=== PATIENT | male | born 1945 | race Two or more races ===

== ENCOUNTER 2019-01-29 17:04 | Emergency (ER) | payer MEDICARE ==
[~2019-01-29] VITALS: Ht 165.1 cm; Wt 76.0 kg
[~2019-01-29 17:04] MED LIST: ATOR10TA69 PO; METF-414 MT; MULT-9 MT
[2019-01-29] MEDS ORDERED: APIXABAN 5 MG TABLET PO STA (20:51)
[2019-01-29] MEDS ORDERED: ASPIRIN 81MG TABLET PO ONE (21:00)
[2019-01-29] MEDS ORDERED: DILTIAZEM HCL 30MG TABLET PO ONE (21:00)
[2019-01-29] MEDS ORDERED: FUROSEMIDE 40MG TABLET PO ONE (21:00)
[2019-01-29] MEDS ORDERED: LEVOFLOXACIN 500MG TABLET PO ONE (21:00)
[2019-01-29 21:24] LABS: INR 1.1; PROTHROMBIN TIME 11.7 sec (9.6-11.0)
[2019-01-29 21:27] LABS: HEMOGLOBIN 13.1 g/dL (14.0-18.0); MEAN CORPUSCULAR HEMOGLOBIN 33.9 pg (28.0-32.0); MEAN CORPUSCULAR VOLUME 98.1 fL (80.0-94.0); PLATELET 343 x1000/uL (130-400); RED BLOOD CELL COUNT 3.88 mill/uL (4.7-6.1)
[2019-01-29 23:20] VITALS: BP 120/70
== END 2019-01-29 23:20 | disposition home or self-care (01) ==
LOC: ER 17:04
DX: R31.9 Hematuria, unspecified (principal); Z86.79 Personal history of other diseases of the circulatory system; E11.9 Type 2 diabetes mellitus without complications; I10 Essential (primary) hypertension; Z90.79 Acquired absence of other genital organ(s); Z79.899 Other long term (current) drug therapy
CPT/HCPCS: 36415; 80048; 85027; 99284